=== PATIENT | female | born 1995 | race American Indian/Alaskan Native ===

== ENCOUNTER 2022-04-28 15:43 | Emergency (ER) | payer SELFPAY ==
[2022-04-28 16:37] LABS: Bilirubin,Urine NEG (Negative); Blood,Urine LG (Negative); Color,Urine Yellow (Yellow)
[2022-04-28 16:40] LABS: Bacteria,Urine 1+ /HPF (Negative); Mucus,Urine 2+ /HPF
[2022-04-28 16:42] LABS: RBC,Urine > 182.0 /HPF (0.0-6.0)
[2022-04-28 16:43] LABS: HCG Qualitative,Urine Negative (Negative)
[2022-04-28] MEDS ORDERED: KETOROLAC 10 MG TAB PO ONE (18:07)
--- NOTE | 2022-04-28 20:21 | Ultrasound Report ---
ULTRASOUND PELVIS INDICATION / CLINICAL INFORMATION: vaginal bleeding. TECHNIQUE: Transvaginal. Duplex Color Doppler used: Yes. COMPARISON: None available FINDINGS: UTERUS: Uterus measures 7 cm in length. Endometrial echo complex is attenuated measuring 3 mm. No earl rine lesions are seen. RIGHT ADNEXA: No significant ovarian cyst or mass. Normal color Doppler blood flow. LEFT ADNEXA: No significant ovarian cyst or mass. Normal color Doppler blood flow. ADDITIONAL FINDINGS: None. IMPRESSION: 1. No significant abnormality. Signer Name: Eliu Mcgrath MD Signed: 04/28/2022 8:17 PM Workstation Name: [id number]
[2022-04-28 20:35] LABS: Mean Corpuscular HGB Conc 30 % (30-34); Platelet Count 412 K/mm3 (140-440); Red Blood Count 4.64 M/mm3 (3.65-5.03); Red Cell Distribution Width 19.4 % (13.2-15.2)
[2022-04-28 20:41] LABS: Hematocrit 32.1 % (30.3-42.9); Hemoglobin 9.4 gm/dl (10.1-14.3); Mean Corpuscular Volume 69 fl (79-97)
--- NOTE | 2022-04-28 20:48 | Emergency Department Report ---
ED Female HPI - General Chief complaint: Vaginal Bleeding Stated complaint: BAGINAL BLEEDING PAIN Time Seen by Provider: 04/28/22 17:40 Source: patient Mode of arrival: Ambulatory Limitations: No Limitations - History of Present Illness Initial comments: 26-year-old black female with no past medical history presents to the emergency department for evaluation of several week history of vaginal bleeding. She states that she had a normal period on 614, then on 624 she started to have bleeding again and has been bleeding persistently since then. She states that she saturates 2-3 pads per day and over the last few days she has had some intermittent dizziness and weakness. She denies fever, dysuria, vaginal discharge but states that she has had some intermittent abdominal pain and cramping. MD Complaint: vaginal bleeding, pelvic pain -: Gradual, week(s) (2-3) Location: suprapubic Radiation: non-radiating Severity: moderate Severity scale (0 -10): 7 Quality: cramping, aching Consistency: intermittent Are you Now?: No Last Menstrual Period: 04/10/22 EDC: 01/15/23 Associated Symptoms: vaginal bleeding, abdominal pain. denies: vaginal discharge, nausea/vomiting, fever/chills, headaches, loss of appetite, dysuria, hematuria, rash, seizure, shortness of breath, syncope, weakness - Related Data Sexually active: Yes Previous Rx's Medication Instructions Recorded Last Taken Type Naproxen [Naprosyn] 500 mg PO BID #14 tab 04/28/22 Unknown Rx cephALEXin [Keflex] 500 mg PO BID #14 cap 04/28/22 Unknown Rx Allergies Allergy/AdvReac Type Severity Reaction Status Date / Time No Known Allergies Allergy Unverified 04/28/22 15:48 ED Review of Systems ROS: Stated complaint: BAGINAL BLEEDING PAIN Other details as noted in HPI Comment: All other systems reviewed and negative Constitutional: denies: chills, fever Eyes: denies: vision change Respiratory: denies: shortness of breath Cardiovascular: denies: chest pain, palpitations Gastrointestinal: abdominal pain. denies: nausea, vomiting, diarrhea, hematemesis, melena, hematochezia Genitourinary: denies: urgency, dysuria, frequency, hematuria, discharge Musculoskeletal: denies: back pain Skin: denies: rash, lesions Neurological: denies: headache, weakness ED Past Medical Hx - Past Medical History Previous Medical History?: No - Surgical History Past Surgical History?: No - Medications Home Medications: Home Medications Medication Instructions Recorded Confirmed Last Taken Type Naproxen [Naprosyn] 500 mg PO BID #14 tab 04/28/22 Unknown Rx cephALEXin [Keflex] 500 mg PO BID #14 cap 04/28/22 Unknown Rx ED Physical Exam - General Limitations: No Limitations General appearance: alert, in no apparent distress - Head Head exam: Present: atraumatic, normocephalic - Eye Eye exam: Present: normal appearance. Absent: conjunctival injection - Neck Neck exam: Present: normal inspection. Absent: tenderness, lymphadenopathy - Respiratory Respiratory exam: Present: normal lung sounds bilaterally. Absent: respiratory distress, wheezes, rales, rhonchi, stridor, chest wall tenderness - Cardiovascular Cardiovascular Exam: Present: regular rate, normal heart sounds - GI/Abdominal GI/Abdominal exam: Present: soft, normal bowel sounds. Absent: distended, tenderness, guarding, rebound, rigid - Extremities Exam Extremities exam: Present: normal inspection, normal capillary refill. Absent: pedal edema, joint swelling, calf tenderness - Back Exam Back exam: Present: normal inspection. Absent: CVA tenderness (R), CVA tenderness (L), vertebral tenderness - Neurological Exam Neurological exam: Present: alert, oriented X3, normal gait - Psychiatric Psychiatric exam: Present: normal affect, normal mood - Skin Skin exam: Present: warm, dry, intact, normal color ED Course Vital Signs 04/28/22 04/28/22 15:50 21:17 Temperature 98.7 F Pulse Rate 85 88 Respiratory 20 14 Rate Blood Pressure 138/89 132/87 [Right] O2 Sat by Pulse 100 100 Oximetry ED Medical Decision Making - Lab Data Result diagrams: 04/28/22 20:01 - Radiology Data Radiology results: report reviewed, image reviewed Pelvic ultrasound complete: FINDINGS: UTERUS: Uterus measures 7 cm in length. Endometrial echo complex is attenuated measuring 3 mm. No uterine lesions are seen. RIGHT ADNEXA: No significant ovarian cyst or mass. Normal color Doppler blood flow. LEFT ADNEXA: No significant ovarian cyst or mass. Normal color Doppler blood flow. ADDITIONAL FINDINGS: None. IMPRESSION: 1. No significant abnormality. - Medical Decision Making 26-year-old black female with no past medical history presents to the emergency department for evaluation of several week history of vaginal bleeding. She states that she had a normal period on 614, then on 624 she started to have bleeding again and has been bleeding persistently since then. She states that she saturates 2-3 pads per day and over the last few days she has had some intermittent dizziness and weakness. She denies fever, dysuria, vaginal discharge but states that she has had some intermittent abdominal pain and cramping. Physical exam unremarkable. H&H within normal limits, ultrasound without any acute abnormalities noted, and urine positive for urinary tract infection. Patient will be discharged home with 7-day course of Keflex for UTI along with naproxen twice a day for 7 days to improve vaginal bleeding. She is advised to follow-up with her primary care provider or [facility] for further evaluation and management or return to the ER for any concerning symptoms. She verbalizes understanding of and agreement with plan of care. Critical care attestation.: If time is entered above; I have spent that time in minutes in the direct care of this critically ill patient, excluding procedure time. ED Disposition Clinical Impression: Abnormal vaginal bleeding UTI (urinary tract infection) Qualifiers: Urinary tract infection type: acute cystitis Hematuria presence: with hematuria Qualified Code(s): N30.01 - Acute cystitis with hematuria Disposition: HOME / SELF CARE / HOMELESS Is pt being admited?: No Does the pt Need Aspirin: No Condition: Stable Instructions: Antibiotic Medicine, Adult, [id number], Urinary Tract Infection, Adult, [id number], Abnormal Uterine Bleeding, [id number] Additional Instructions: Take medications as prescribed. Follow up with strapping machine operator for further evaluation and management. Return to ED as needed. Prescriptions: cephALEXin [Keflex] 500 mg PO BID #14 cap Naproxen [Naprosyn] 500 mg PO BID #14 tab Referrals: JESUS RAINEY MD [Staff Physician] - 3-5 Days Time of Disposition: 20:48
[2022-04-28 21:17] VITALS: BP 132/87
== END 2022-04-28 21:35 | disposition home or self-care (01) ==
LOC: ED 15:43
DX: N93.9 Abnormal uterine and vaginal bleeding, unspecified (principal); N39.0 Urinary tract infection, site not specified
CPT/HCPCS: 36415; 76830; 76856; 81001; 81025; 85027; 87086; 99284